=== PATIENT | male | born 1970 | race Caucasian/White ===

== ENCOUNTER 2016-10-20 14:48 | Observation (INO) ==
--- NOTE | 2016-10-20 16:29 | Emergency Department Note ---
START Narrative - START START: I, Gary Rosas, examined this patient and my medical decision-making was reviewed with the SEWAGE DISPOSAL WORKER/PA/Advanced Practice Nurse/Resident Physician. I agree with the documented findings, disposition and treatment plan as described except to the extent set forth below. 46-year-old male presents with concerns of near syncope. Sister states the patient developed acute onset of diaphoresis, near syncopal symptoms with lightheadedness and pallor. sister states that this occurred 15 minutes after using the restroom. Patient reports that this is his third time back to the emergency department within the past few weeks for similar symptoms. Patient has multiple risk factors for cardiac disease including hypertension, hyperlipidemia, diabetes and multiple family members with cardiac disease. Patient denied chest pain today. Initial troponin negative. ECG showed sinus tachycardia with a rate of 102. Patient will be admitted to the hospital for near syncopal symptoms and likely observation overnight.
[2016-10-20] MEDS ORDERED: 0.9 % Sodium Chloride 1,000 ML IVC ONE ×2 (16:34→20:52)
--- NOTE | 2016-10-20 16:37 | Emergency Department Note ---
Disposition Clinical Impression: Pre-syncope, Tachycardia Fatigue Qualifiers: Fatigue type: other Qualified Code(s): R53.83 - Other fatigue Disposition: Admitted As Inpatient Condition: Fair Time of Disposition: 21:27 General Adult HPI - General Chief complaint: ED Neuro Symptoms/Deficit Stated complaint: Needs CT Time Seen by Provider: 10/20/16 15:47 Source: patient Limitations: no limitations Nursing Notes Reviewed: Yes Vital Signs Reviewed: Yes - History of Present Illness HPI Narrative: 46-year-old male presents after presyncopal episode. Patient has a past history for diabetes hypertension and hyperlipidemia. Patient's sister in the room has full history states that patient had a bowel movement earlier today when he had a presyncopal episode and was pale and diaphoretic that persist for greater than 15 minutes afterwards which was concerning to her. Patient did not have any loss of consciousness, but patient has been feeling lightheaded. She reports the patient's been having persistent tachycardia for the past week. Patient was seen in the ED on the first for hyperglycemia is treated with IV therapy and sent home. Denies fever, cough, chills, any nausea or vomiting today. Patient did have some nausea and vomiting 2 days ago. Denies trauma, denies alcohol use, tobacco use, illicit drug use. Patient is not on anticoagulants Patient admits to feeling excessively thirsty Pain Scale: 5 - Related Data Home Medications Medication Instructions Recorded Confirmed Buspirone [Buspar] 15 mg PO BID 06/19/15 10/20/16 Gemfibrozil [Lopid] 600 mg PO BIDWM 06/19/15 10/20/16 Lisinopril [Zestril] 10 mg PO DAILY 06/19/15 10/20/16 Sertraline [Zoloft] 50 mg PO QPM 06/19/15 10/20/16 Glimepiride [Amaryl] 4 mg PO QAM 10/20/16 10/20/16 Hydroxyzine HCl 25 mg PO DAILY PRN 10/20/16 10/20/16 Metformin HCl [Glucophage Xr] 750 mg PO BID 10/20/16 10/20/16 Pioglitazone HCl [Actos] 30 mg PO DAILY 10/20/16 10/20/16 Sertraline [Zoloft] 100 mg PO QAM 10/20/16 10/20/16 Allergies Allergy/AdvReac Type Severity Reaction Status Date / Time No Known Allergies Allergy Verified 10/20/16 15:33 All systems ED: reviewed and negative except as stated. Constitutional: Denies: fever, chills, weakness Eyes: Denies: eye pain, vision change ENT ED: Denies: ear pain, congestion, dysphagia Cardiovascular: Denies: chest pain, palpitations Respiratory: Denies: cough, dyspnea, wheezes Gastrointestinal: Denies: abdominal pain, nausea, vomiting, diarrhea Genitourinary: Denies: urgency, dysuria Past Medical History - Past Medical History Attestation: Yes The following information was validated with the patient. Source: patient, obtained from family Medical history: Reports: diabetes, hyperlipidemia, hypertension, other Surgical history: Reports: non-contributory, other Psychiatric history: Reports: anxiety - Social History Smoking Status: Never smoker Smokeless Tobacco Status: No Alcohol use: Reports: none Drug use: Reports: none Physical Exam Vital Signs Temperature 97.7 F 10/20/16 15:26 Pulse Rate 116 10/20/16 15:26 Respiratory Rate 16 10/20/16 15:26 Blood Pressure 125/81 10/20/16 15:26 O2 Sat by Pulse Oximetry 96 10/20/16 15:26 Temperature 97.7 F 10/20/16 15:26 Pulse Rate 112 10/20/16 16:04 Respiratory Rate 18 10/20/16 16:04 Blood Pressure 125/79 10/20/16 16:04 O2 Sat by Pulse Oximetry 96 10/20/16 16:04 Oxygen Delivery Oxygen Delivery Room Air -General Appearance: Patient is a 46-year-old male who is alert and oriented 3 and in no acute distress. Patient has a GCS of 15. Patient sitting upright on the bed comfortably -Neurological exam: Cranial nerves II-12 intact, no focal deficits observed, strength equal 5/5 bilaterally in upper and lower extremities, cerebellar motion test negative. Negative loss of sensation, reflexes 2 out of 4 intact no clonus. Patient able to perform repetitive motion tests appropriately - Head Head exam: atraumatic, normocephalic, normal inspection - Eye Eye exam: Present: normal appearance, PERRL, EOMI, negative for scleral icterus negative for conjunctival pallor - ENT ENT exam: normal exam, normal oropharynx, mucous membranes moist - Neck Neck exam: Present: normal inspection, full ROM, trachea midline, negative JVD - Chest Chest inspection: Present: Patient has bilateral equal rise and fall of chest wall. Non-tender to palpation. - Respiratory Respiratory exam: Clear to auscultation bilaterally without wheezes rales or rhonchi Cardiovascular Cardiovascular exam: Present: regular rate, normal rhythm, normal heart sounds, without murmurs rubs or gallops. - Abdominal Exam Abdominal exam: Present: soft, nondistended, Non-Tender light and deep palpation in all quadrants. Bowel sounds normoactive throughout all 4 quadrants. Negative for hyper or hyperresonance. - Extremities Exam Extremities exam: Present: normal inspection, full ROM, cecal regular bilaterally at radials and DPs - Back Exam Back exam: Present: normal inspection, full ROM. Absent: tenderness, CVA tenderness (R), CVA tenderness (L) - Psychiatric Psychiatric exam: Present: normal affect, normal mood - Skin Skin exam: Present: warm, dry, intact, normal color, capillary refill less than 2 - General Limitations: no limitations General appearance: alert, in no apparent distress Course - Reevaluation(s) Reevaluation #1: Assessment: Presyncopal episode secondary to vasovagal response, TIA, stroke, DKA, dehydration, ACS and [place], Time: 16:40 Reevaluation #2: Patient's chest x-ray showed no acute abnormalities lungs or heart. Reevaluation #3: Patient is doing well still tachycardic, and feeling like pressure on top of his head and is wearing a hat. Still trying to obtain IV access to start IV rehydration. Labs were drawn Time: 17:31 Additional Reevaluation(s): Chest X-Ray 10/20/16 16:35 IMPRESSION: No acute process. D/ / Alejandro Chao MD / Alejandro Chao MD Interpreting Provider: Alejandro Chao MD Head CT 10/20/16 17:34 IMPRESSION: No acute intracranial abnormality. D/ / Elton Doran MD / Elton Doran MD Interpreting Provider: Elton Doran MD 1915 hrs.: The patient's last tachycardia. Plan to do a d-dimer CTA chest showed no signs of PE. Current plan is admission for near syncope and no etiology with persistent tachycardia for further evaluation and neurology and cardiology. - Consultations Consultation #1: Dr. Berry accepted for admission 2121 hrs Time: 21:24 Vital Signs Temperature 97.7 F 10/20/16 15:26 Pulse Rate 116 10/20/16 15:26 Respiratory Rate 16 10/20/16 15:26 Blood Pressure 125/81 10/20/16 15:26 O2 Sat by Pulse Oximetry 96 10/20/16 15:26 Temperature 97.7 F 10/20/16 15:26 Pulse Rate 113 10/20/16 21:40 Respiratory Rate 16 10/20/16 22:12 Blood Pressure 133/99 10/20/16 22:12 O2 Sat by Pulse Oximetry 95 10/20/16 21:40 Oxygen Delivery Oxygen Delivery Room Air Medical Decision Making - Medical Records Medical records reviewed: Yes I reviewed the patient's medical records. - Lab Data Lab results reviewed: Yes I reviewed the patient's lab results. Lab results narrative: Short CBC 10/20/16 Range/Units 17:14 WBC 6.2 (4.3-11.1) K/mcL Hgb 15.0 (12.9-16.9) g/dL Hct 43.5 (37.5-50.1) % Plt Count 370 (140-400) K/mcL Neutrophils # 3.6 (1.6-8.9) K/mcL BMP 10/20/16 Range/Units 17:14 Sodium 133 L (136-145) mEq/L Potassium 4.4 (3.5-4.5) mEq/L Chloride 99 (98-109) mEq/L Carbon Dioxide 20 (19-29) mEq/L BUN 24 (8-26) mg/dL Creatinine 1.26 H (0.72-1.25) mg/dL Glucose 112 H (70-99) mg/dL Calcium 10.7 (8.6-10.8) mg/dL Cardiac Enzymes 10/20/16 Range/Units 17:14 Troponin I 0.00 (0-0.03) ng/mL Result diagrams: 10/20/16 17:14 10/20/16 17:14 Lab Results 10/20/16 10/20/16 10/20/16 Range/Units 17:02 17:14 17:14 WBC 6.2 (4.3-11.1) K/mcL RBC 4.82 (4.19-5.50) M/mcL Hgb 15.0 (12.9-16.9) g/dL Hct 43.5 (37.5-50.1) % MCV 90.2 (83.0-100.0) fL MCH 31.1 (28.0-33.3) pg MCHC 34.5 (31.6-35.5) g/dL RDW 12.7 (11.5-14.5) % Plt Count 370 (140-400) K/mcL MPV 10.6 (9.4-12.4) fL Immature Gran % 0.2 (0-4) % Seg Neutrophils % 58.4 % Lymphocytes % 31.9 % Monocytes % 7.1 % Eosinophils % 1.9 % Basophils % 0.5 % Neutrophils # 3.6 (1.6-8.9) K/mcL Lymphocytes # 2.0 (0.6-4.6) K/mcL Monocytes # 0.4 (0.0-1.3) K/mcL Eosinophils # 0.1 (0.0-0.6) K/mcL Basophils # 0.0 (0.0-0.2) K/mcL D-Dimer (0-500) ng/mLFEU Sodium 133 L (136-145) mEq/L Potassium 4.4 (3.5-4.5) mEq/L Chloride 99 (98-109) mEq/L Carbon Dioxide 20 (19-29) mEq/L BUN 24 (8-26) mg/dL Creatinine 1.26 H (0.72-1.25) mg/dL Est GFR ( Amer) > 60 (> 60) Est GFR (Non-Af Amer) > 60 (> 60) BUN/Creatinine Ratio 19 (6-26) Glucose 112 H (70-99) mg/dL POC Glucose 131 H (58-89) Calculated Osmolality 281 (280-300) Calcium 10.7 (8.6-10.8) mg/dL Troponin I (0-0.03) ng/mL 10/20/16 10/20/16 Range/Units 17:14 17:14 WBC (4.3-11.1) K/mcL RBC (4.19-5.50) M/mcL Hgb (12.9-16.9) g/dL Hct (37.5-50.1) % MCV (83.0-100.0) fL MCH (28.0-33.3) pg MCHC (31.6-35.5) g/dL RDW (11.5-14.5) % Plt Count (140-400) K/mcL MPV (9.4-12.4) fL Immature Gran % (0-4) % Seg Neutrophils % % Lymphocytes % % Monocytes % % Eosinophils % % Basophils % % Neutrophils # (1.6-8.9) K/mcL Lymphocytes # (0.6-4.6) K/mcL Monocytes # (0.0-1.3) K/mcL Eosinophils # (0.0-0.6) K/mcL Basophils # (0.0-0.2) K/mcL D-Dimer 1680 H (0-500) ng/mLFEU Sodium (136-145) mEq/L Potassium (3.5-4.5) mEq/L Chloride (98-109) mEq/L Carbon Dioxide (19-29) mEq/L BUN (8-26) mg/dL Creatinine (0.72-1.25) mg/dL Est GFR ( Amer) (> 60) Est GFR (Non-Af Amer) (> 60) BUN/Creatinine Ratio (6-26) Glucose (70-99) mg/dL POC Glucose (58-89) Calculated Osmolality (280-300) Calcium (8.6-10.8) mg/dL Troponin I 0.00 (0-0.03) ng/mL - Radiology Data Radiology results reviewed: Yes I reviewed the patient's radiology results. Chest X-Ray 10/20/16 16:35 IMPRESSION: No acute process. D/ / Alejandro Chao MD / Alejandro Chao MD Interpreting Provider: Alejandro Chao MD Head CT 10/20/16 17:34 IMPRESSION: No acute intracranial abnormality. D/ / Elton Doran MD / Elton Doran MD Interpreting Provider: Elton Doran MD - EKG Data EKG #1 EKG attestation: Yes I reviewed and interpreted this EKG. EKG results narrative: EKG taken 10/20/2016 at 1700 hrs. shows a sinus tachycardia at a rate of 102 beats minute with no acute ST elevations or depressions any leads. EKG does show a S1 Q3 T3. Previous EKG taken 10/17/2016 also shows sinus tachycardia no acute ST elevations or depressions any leads. S1 Q3 T3 also seen
[2016-10-20 17:30] LABS: Basophils % 0.5 %; Eosinophils # 0.1 K/mcL (0.0-0.6); Eosinophils % 1.9 %; Hematocrit 43.5 % (37.5-50.1); Immature Granulocytes % 0.2 % (0-4); Lymphocytes % 31.9 %; Mean Corpuscular HGB Conc 34.5 g/dL (31.6-35.5); Mean Corpuscular Hemoglobin 31.1 pg (28.0-33.3); Mean Corpuscular Volume 90.2 fL (83.0-100.0); Mean Platelet Volume 10.6 fL (9.4-12.4); Monocytes # 0.4 K/mcL (0.0-1.3); Monocytes % 7.1 %; Neutrophils # 3.6 K/mcL (1.6-8.9); Platelet Count 370 K/mcL (140-400); Red Blood Count 4.82 M/mcL (4.19-5.50); Red Cell Distribution Width 12.7 % (11.5-14.5); Segmented Neutrophils % 58.4 %
[2016-10-20 17:38] LABS: BUN/Creatinine Ratio 19 (6-26); Blood Urea Nitrogen 24 mg/dL (8-26); Calcium 10.7 mg/dL (8.6-10.8); Carbon Dioxide 20 mEq/L (19-29); Chloride 99 mEq/L (98-109); Glucose 112 mg/dL (70-99); Osmolality,Calculated 281 (280-300); Potassium 4.4 mEq/L (3.5-4.5); Sodium 133 mEq/L (136-145); eGFR For African Americans > 60 (> 60); eGFR For Non-African Americans > 60 (> 60)
--- NOTE | 2016-10-21 00:16 | Internal Med History&Physical ---
Date of Encounter: 10/21/16 Time of Encounter: 01:00 Assessment and Plan (1) Postural dizziness with presyncope Status: Resolved . (2) Obesity (BMI 30-39.9) Status: Chronic . (3) Situational anxiety Status: Resolved . (4) POTS (postural orthostatic tachycardia syndrome) Status: Acute . (5) Hyperglycemia due to type 2 diabetes mellitus Status: Acute . Qualifiers: Diabetes mellitus intermediate teacher insulin use: unspecified intermediate teacher insulin use status Qualified Code(s): E11.65 - Type 2 diabetes mellitus with hyperglycemia (6) Tension type headache, unspecified Status: Acute . Qualifiers: Headache chronicity pattern: unspecified pattern Intractability: not intractable Qualified Code(s): G44.209 - Tension-type headache, unspecified, not intractable (7) Dilutional hyponatremia Status: Acute . (8) CKD (chronic kidney disease) stage 2, GFR 60-89 ml/min Status: Chronic . Internal Medicine - H&P: HPI Chief complaint: (Recurring near syncope)... lightheadedness sweats pallor and weakness Admitted From: Emergency Dept Plans for Post Hospital Care: Home History of present illness: Mr. Mayorga is a 46 year old male with medical history significant for type II DM , hypertension, dyslipidemia, depression/situational anxiety disorder, morbid obesity, nonsmoker. Patient is admitted to [facility] department when he presents accompanying family with concerns of recurring episodes of near syncope. Patient's sister validates history reports patient develops episodically acute onset of diaphoresis lightheadedness pallor and near -syncope. Sister acknowledges that recent episode occurred after using the bathroom and lingered for more than 15 minutes afterwards. The patient reports that this was the third time that he is presented in the past few weeks for similar recurring symptoms. He denies any episodes of complete loss of consciousness. He has felt lightheaded and unsteady He denied episodes of chest pain, abdominal pain and flank pain and neck pain these episodes. He presents today with a headache symptom which he describes as feeling like a hat band about the top of his head. He denies any outstanding electric lancinating pains visual deficits slurring of speech, weakness witnessed seizure-like activity. Sr. also acknowledge that the patient had had persisting tachycardias with the last week or so. According the patient denies any dietary recreational or medication indiscretions. Specifically he denies any significant reductions discontinuance introduction of medications to address his anxiety and depression (example buspirone hydroxyzine Adrienne et al). He denied any doses and stimulants herbal therapies for weight loss remedies. He has acknowledged a diminished appetite with feelings of early satiety. As a consequence his oral intake of solids and liquids have somewhat recently. Denies any significant problems with his diabetes management however has been seen in the emergency department within the month for symptomatic hypoglycemia. Received intravenous therapy and was discharged home. He denies any recent upper or lower respiratory complaints cough fever or chills or vomiting diarrhea. He denies any trauma. Does acknowledge an increase since of thirstiness but denies polyuria or polyphagia. Findings in the ED: 97.7 pulse 112-160 respirations 16-18 BP 125/81 O2 saturation 96% on room air. WBC 6.2 hemoglobin 15 platelets 370,000. Metabolic panel normal except sodium 133. Creatinine 1.6 BUN 24. Glucose 112. White blood cell differential normal. Osmolality 281. D-dimer 1680. Troponin 0.00. EKG sinus tachycardia. 102 bpm. No acute ischemic changes. CT head scan without contrast demonstrated no acute intracranial abnormality. CT angiogram of the chest demonstrated no evidence for pulmonary embolus or aortic aneurysm or dissection. No acute active cardiopulmonary process. Mediastinal lipomatosis noted incidentally. Chest x-ray revealed no acute or active cardiopulmonary process. Preliminary impression suggests episodes of neurocardiogenic/vasovagal presyncopal or near syncopal events. The report of post defecation/post micturition symptoms compatible with a vasovagal event. Presentation is significant for a perception of anxiety and tension state in patient. Subjective feelings of hat bandlike sensation about the vertex of scalp is reminiscent of tension muscle contraction syndromes. He denies however on truly perceived headache. His ability however to describe symptoms feelings and events is vague. The presence of the tachycardia may suggest an autonomic dysfunction with postural orthostatic tachycardia syndrome as might be seen in a poorly controlled diabetic. This will bear further investigation. He does have orthostatic changes with change in position. That side however not significant enough to induce presyncopal complaints. Studies obtained otherwise are not specifically diagnostic. Further assessment is warranted. Workup and treatment will proceed comprehensively. The patient was visited and interviewed and examined. Cumulative laboratory and radiographic data base will be considered and discussed. Pertinent ancillary medical records including ECW and PCI documentation when available was reviewed and considered. Given the patient's presenting concerns, past medical history, clinical findings and symptoms, he is admitted at this time will undergo further evaluation and disposition. Orders were written as per Computerized physician order tracer system.......................................................................... .................... Consultative opinion will be sought as clinical circumstances justify. Pain management needs will be addressed. Laboratory/ radiographic data base will be updated as appropriate. Studies include: ddimer, pt/inr, aptt, UA, UDS, B12, folate, prolactin, cpk, cardiac injury panel, BNP, metabolic and hematologic panel, magnesium, phosphorus, ionized calcium, thyroid panel, lipid profile, A1c, C-peptide, CRP, sedimentation rate, respiratory virus panel, blood gas, lactic acid, serologies , etc. Precautions: Aspiration, fall, seizure, delirium protocol/surveillance initiated. Orthostatic vital signs. Telemetry with continuous hemodynamic monitoring and pulse oximetry initiated. Empiric antibody coverage: Intravenous Rocephin and azithromycin pending culture data. Special studies: CT/CTA chest, CT head, MRI head, carotid US, chest x-ray, telemetry, EKG, echocardiogram. Pulmonary toilet: Incentive spirometry. PRN: aerosol bronchodilator, mucolytic, antitussive, supplemental oxygen. Corticosteroid therapy PRN. CPAP/BiPAP supplemental oxygen deliveryPRN. Aerosol Mucomyst therapy PRN. Fluid and electrolyte repletion efforts will proceed. Careful attention to fluid balance and renal recovery will be emphasized. Avoidance of nephrotoxic exposure and adverse drug drug interaction in the setting of impaired renal function will be monitored closely. Acute coronary syndrome protocol/surveillance initiated. Acute MONTESS[employer]GRAM DIRECTOR injury protocol/surveillance initiated. DVT and PUD prophylaxis initiated: PPI therapy, intermittent pneumatic cuffs. Subcutaneous heparinLovenox. Early ambulation will be encouraged. Immunization updates recommended. Influenza and pneumococcal vaccinations as part of ongoing preventative healthcare recommendations strongly recommended. Smoking cessation counseling briefly addressed. Patient is a nonsmoker. Advanced care directive discussion briefly addressed. Patient does not declare any healthcare restrictions at this time. Cardiovascular risk appraisal and cardiovascular risk reduction efforts will be emphasized. Physical /occupational therapy may be consulted to evaluate patient's functional capacity and progressive mobility if circumstances justify. Sliding scale insulin coverage, ADA dietary restraint and schedule an as-needed basis fingerstick glucose assessments were initiated. Nutrition/diabetes education counseling may be considered as circumstances justify. Outpatient medication schedules will be reviewed, confirmed and facilitated as appropriate. Reconciliation of home treatments including adjustments, substitutions and reintroduction into the treatment regimen will address necessary maintenance therapies for chronic pre-existing medical conditions. Plan of care has been reviewed and discussed in detail with the patient. Questions addressed. Hospital course dictated by clinical findings, treatment response and potential consultative interventions. Patient is a risk for further acute clinical decline due to presenting chief complaints and comorbidities. Condition is serious. Prognosis is guarded. CODE STATUS is full. Past Med Surg Social Fam HX - Past Medical History Source: old records reviewed Medical history: diabetes, hyperlipidemia, hypertension, other Psychiatric history: anxiety, depression, other - Past Surgical History Surgical History: non-contributory, other - Social History Smoking Status: Never smoker Smokeless Tobacco Status: No Alcohol use: none Drug use: none Occupational status: employed Current living situation: Home - Independent Activity Level: Independent ambulation, Mostly sedentary Recent Out of Country Travel Within the Last 8 Weeks: No Exposure or Possible Exposure to Illness During Travel: No - Family History Father Living Status: Still Living Hx Family Endocrine Disorder: Yes (DM) Mother Living Status: Hx Family Neuromuscular Disorders: Yes (ALS) Internal Medicine - H&P: Meds Buspirone [Buspar] 15 mg PO BID 06/19/15 [History] Gemfibrozil [Lopid] 600 mg PO BIDWM 06/19/15 [History] Lisinopril [Zestril] 10 mg PO DAILY 06/19/15 [History] Sertraline [Zoloft] 50 mg PO QPM 06/19/15 [History] Glimepiride [Amaryl] 4 mg PO QAM 10/20/16 [History] Hydroxyzine HCl 25 mg PO DAILY PRN 10/20/16 [History] Metformin HCl [Glucophage Xr] 750 mg PO BID 10/20/16 [History] Pioglitazone HCl [Actos] 30 mg PO DAILY 10/20/16 [History] Sertraline [Zoloft] 100 mg PO QAM 10/20/16 [History] Allergies No Known Allergies Allergy (Verified 10/20/16 15:33) All Systems PM: A 10-system review of systems was performed and is negative for pertinent findings except as documented above in the HPI. Allergies Allergy/AdvReac Type Severity Reaction Status Date / Time No Known Allergies Allergy Verified 10/20/16 15:33 Patient Problems (Last Updated 10/20/16 @ 21:28 by Torsten Asencio DO) Fatigue (Acute Medical) R53.83 Pre-syncope (Acute Medical) R55 Tachycardia (Acute Medical) R00.0 Anxiety (Acute Medical) F41.9 Hyperglycemia (Acute Medical) R73.9 Hyperglycemia due to type 2 diabetes mellitus (Acute Medical) E11.65 Nausea and vomiting (Acute Medical) R11.2 Anxiety (Inactive Medical) Diabetic ulcer of left foot (Inactive Medical) Headache (Inactive Medical) - Constitutional Constitutional: as per HPI, fatigue, malaise, other, no chills, no fever(s), no night sweats - EENT Eyes: as per HPI, no change in vision, no discharge, no pain, no photophobia Ears: as per HPI, no ear discharge, no ear pain, no tinnitus Nose, mouth and throat: as per HPI, no dysphagia, no nasal discharge, no neck pain, no sore throat - Cardiovascular Cardiovascular ROS IM: as per HPI, diaphoresis, lightheadedness, palpitations, other, no chest pain, no claudication, no dyspnea, no edema, no orthopnea, no paroxysmal nocturnal dyspnea, no syncope - Respiratory Respiratory: as per HPI, other, no cough, no dyspnea, no hemoptysis, no wheezing , no excessive phlegm production - Gastrointestinal Gastrointestinal: as per HPI, no abdominal pain, no diarrhea, no hematemesis, no hematochezia, no melena, no nausea, no vomiting - Genitourinary Genitourinary ROS male: as per HPI - Musculoskeletal Musculoskeletal ROS IM: as per HPI, no numbness, no tingling - Integumentary Integumentary IM: as per HPI, no rash, no unusual bruising - Neurological Neurological ROS: as per HPI, dizziness, weakness, other, no abnormal speech, no confusion, no convulsions, no focal weakness, no headache(s), no lack of coordination, no loss of vision, no numbness, no tingling, no tremor(s) - Psychiatric Psychiatric: as per HPI, other - Endocrine Endocrine IM: as per HPI, other - Hematologic/Lymphatic Hematologic/Lymphatic: as per HPI, no easy bruising - Allergic/Immunologic Allergic/Immunologic: as per HPI - Constitutional Vitals: Temp Pulse Resp BP Pulse Ox 98.1 F 102 16 106/71 95 10/20/16 22:58 10/20/16 22:58 10/20/16 22:58 10/20/16 22:58 10/20/16 22:58 Vital Signs Temp Pulse Pulse Pulse Pulse Resp BP 10/20/16 22:58 98.1 F 102 16 106/71 10/20/16 22:12 16 133/99 10/20/16 21:40 113 16 141/94 10/20/16 18:16 99 16 120/80 10/20/16 17:12 114 16 130/85 10/20/16 17:11 99 104 114 10/20/16 17:01 106 16 10/20/16 16:04 112 18 125/79 10/20/16 15:26 97.7 F 116 16 125/81 BP BP BP Pulse Ox 10/20/16 22:58 95 10/20/16 22:12 10/20/16 21:40 95 10/20/16 18:16 94 10/20/16 17:12 95 10/20/16 17:11 122/85 129/91 130/85 10/20/16 17:01 95 10/20/16 16:04 96 10/20/16 15:26 96 Intake and Output 10/20/16 10/20/16 10/21/16 15:59 23:59 07:59 Intake Total 1000 / 1000 Balance 1000 / 1000 Intake: IV Fluids 1000 / 1000 0.9 % Sodium Chloride 1, 1000 / 1000 000 ML @ 3750 mls/hr IVC .Q16M ONE Rx#:[id number] Other: # Voids 1 Weight 99.79 kg 103.419 kg Blood Glucose* 107 General appearance: Present: mild distress, A&O X 3, morbidly obese, answers questions appropriately - Head Head exam: Present: atraumatic, normal inspection, normocephalic - Eye Eye exam: Present: EOMI, PERRL, conjuntiva pink, sclera anicteric Pupils: Present: normal accommodation, PERRL - ENT ENT exam: Present: mucous membranes moist, normal external ear exam, normal oropharynx - Neck Neck exam general surgery: Present: full ROM, tenderness, supple, trachea midline. Absent: lymphadenopathy, nuchal rigidity - Respiratory Respiratory exam: Present: decreased breath sounds, CTAB. Absent: accessory muscle use, rales, rhonchi, wheezes - Cardiovascular Cardiovascular exam: Present: distant heart sounds, RRR, +S1, +S2, tachycardia. Absent: diastolic murmur, gallop, rubs, systolic murmur - GI/Abdominal GI/Abdominal exam: Present: normal bowel sounds, soft, no peritoneal signs. Absent: distended, tenderness - Extremities Exam Extremities exam: Present: full ROM, warm, radial pulses palpable and symetrical. Absent: calf tenderness, cyanotic, pedal edema - Neurological Exam Neurological exam: Present: alert, CN II-XII intact, oriented X3, no focal deficits, strengths equal and symetr throughout. Absent: motor sensory deficit , pronater drift, facial droop, speech deficit - Psychiatric Psychiatric exam: Present: anxious, normal mood - Skin Skin exam: Present: dry, intact, warm. Absent: petechiae, rash, urticaria, vesicles Internal Med - H&P Results - Labs CBC & Chem 7: 10/20/16 17:14 10/21/16 01:22 Labs: Short CBC 10/20/16 Range/Units 17:14 WBC 6.2 (4.3-11.1) K/mcL Hgb 15.0 (12.9-16.9) g/dL Hct 43.5 (37.5-50.1) % Plt Count 370 (140-400) K/mcL Neutrophils # 3.6 (1.6-8.9) K/mcL BMP 10/20/16 Range/Units 17:14 Sodium 133 L (136-145) mEq/L Potassium 4.4 (3.5-4.5) mEq/L Chloride 99 (98-109) mEq/L Carbon Dioxide 20 (19-29) mEq/L BUN 24 (8-26) mg/dL Creatinine 1.26 H (0.72-1.25) mg/dL Glucose 112 H (70-99) mg/dL Calcium 10.7 (8.6-10.8) mg/dL Cardiac Enzymes 10/20/16 Range/Units 17:14 Troponin I 0.00 (0-0.03) ng/mL Abnormal lab results D-Dimer 1680 ng/mLFEU (0-500) H 10/20/16 17:14 Sodium 133 mEq/L (136-145) L 10/20/16 17:14 Creatinine 1.26 mg/dL (0.72-1.25) H 10/20/16 17:14 Glucose 112 mg/dL (70-99) H 10/20/16 17:14 POC Glucose 107 (58-89) H 10/20/16 21:39 Laboratory Last Values WBC 6.2 K/mcL (4.3-11.1) 10/20/16 17:14 RBC 4.82 M/mcL (4.19-5.50) 10/20/16 17:14 Hgb 15.0 g/dL (12.9-16.9) 10/20/16 17:14 Hct 43.5 % (37.5-50.1) 10/20/16 17:14 MCV 90.2 fL (83.0-100.0) 10/20/16 17:14 MCH 31.1 pg (28.0-33.3) 10/20/16 17:14 MCHC 34.5 g/dL (31.6-35.5) 10/20/16 17:14 RDW 12.7 % (11.5-14.5) 10/20/16 17:14 Plt Count 370 K/mcL (140-400) 10/20/16 17:14 MPV 10.6 fL (9.4-12.4) 10/20/16 17:14 Immature Gran % 0.2 % (0-4) 10/20/16 17:14 Seg Neutrophils % 58.4 % 10/20/16 17:14 Lymphocytes % 31.9 % 10/20/16 17:14 Monocytes % 7.1 % 10/20/16 17:14 Eosinophils % 1.9 % 10/20/16 17:14 Basophils % 0.5 % 10/20/16 17:14 Neutrophils # 3.6 K/mcL (1.6-8.9) 10/20/16 17:14 Lymphocytes # 2.0 K/mcL (0.6-4.6) 10/20/16 17:14 Monocytes # 0.4 K/mcL (0.0-1.3) 10/20/16 17:14 Eosinophils # 0.1 K/mcL (0.0-0.6) 10/20/16 17:14 Basophils # 0.0 K/mcL (0.0-0.2) 10/20/16 17:14 D-Dimer 1680 ng/mLFEU (0-500) H 10/20/16 17:14 Sodium 133 mEq/L (136-145) L 10/20/16 17:14 Potassium 4.4 mEq/L (3.5-4.5) 10/20/16 17:14 Chloride 99 mEq/L (98-109) 10/20/16 17:14 Carbon Dioxide 20 mEq/L (19-29) 10/20/16 17:14 BUN 24 mg/dL (8-26) 10/20/16 17:14 Creatinine 1.26 mg/dL (0.72-1.25) H 10/20/16 17:14 Est GFR ( Amer) > 60 (> 60) 10/20/16 17:14 Est GFR (Non-Af Amer) > 60 (> 60) 10/20/16 17:14 BUN/Creatinine Ratio 19 (6-26) 10/20/16 17:14 Glucose 112 mg/dL (70-99) H 10/20/16 17:14 POC Glucose 107 (58-89) H 10/20/16 21:39 Calculated Osmolality 281 (280-300) 10/20/16 17:14 Calcium 10.7 mg/dL (8.6-10.8) 10/20/16 17:14 Troponin I 0.00 ng/mL (0-0.03) 10/20/16 17:14 - Impressions Chest X-Ray 10/20/16 16:35 IMPRESSION: No acute process. D/ / Alejandro Chao MD / Alejandro Chao MD Interpreting Provider: Alejandro Chao MD Head CT 10/20/16 17:34 IMPRESSION: No acute intracranial abnormality. D/ / Elton Doran MD / Elton Doran MD Interpreting Provider: Elton Doran MD Chest CTA 10/20/16 19:51 IMPRESSION: No evidence of a pulmonary embolus. Clear lungs. Mediastinal lipomatosis. D/ / Alf Ling MD / Alf Ling MD Interpreting Provider: Alf Ling MD - Attending Attestation Allergies No Known Allergies Allergy (Verified 10/20/16 15:33) Home Medications Medication Instructions Recorded Confirmed Type Buspirone [Buspar] 15 mg PO BID 06/19/15 10/20/16 History Gemfibrozil [Lopid] 600 mg PO BIDWM 06/19/15 10/20/16 History Lisinopril [Zestril] 10 mg PO DAILY 06/19/15 10/20/16 History Sertraline [Zoloft] 50 mg PO QPM 06/19/15 10/20/16 History Glimepiride [Amaryl] 4 mg PO QAM 10/20/16 10/20/16 History Hydroxyzine HCl 25 mg PO DAILY PRN 10/20/16 10/20/16 History Metformin HCl [Glucophage Xr] 750 mg PO BID 10/20/16 10/20/16 History Pioglitazone HCl [Actos] 30 mg PO DAILY 10/20/16 10/20/16 History Sertraline [Zoloft] 100 mg PO QAM 10/20/16 10/20/16 History I & O 10/18/16 10/19/16 10/20/16 10/21/16 23:59 23:59 23:59 23:59 Intake Total 1000 / 1000 Balance 1000 / 1000 Weight 103.419 kg Intake: IV Fluids 1000 / 1000 0.9 % Sodium Chloride 1, 1000 / 1000 000 ML @ 3750 mls/hr IVC .Q16M ONE Rx#:[id number] Other: # Voids 1 Blood Glucose* 107 Medications Discontinued Medications Sodium Chloride (0.9 % Sodium Chloride) 1,000 mls @ 3,750 mls/hr IVC .Q16M ONE Stop: 10/20/16 16:49 Last Infusion: 10/20/16 20:10 Dose: 0 mls/hr Sodium Chloride (0.9 % Sodium Chloride) 1,000 mls @ 3,750 mls/hr IVC .Q16M ONE Stop: 10/20/16 21:07 Last Admin: 10/20/16 21:35 Dose: 3,750 mls/hr Nursing Notes 10/20/16 20:55 Transport Report by Joel Duvall Date: 10/20/16 Transport Method: Portable No Known Allergies Allergy (Verified 10/20/16 15:33) Resuscitation Status 10/20/16 16:34 ECG 12 lead ECG [ECG] Stat Mode Of Transportation: Portable Reason For Exam: syncope Exam Performed At:: [facility] Oxygen: Mental Status: Fall Risk: Isolation: Nurse Required for Transport: No ___ Yes Limb Restrictions: No ___ Yes Behavioral issue/Risk for Elopement: No ___ Yes Telemetry Room Notification: Destination: MRI XRAY STRESS ULTRASOUND CT DIALYSIS ENDO OTHER: Depart Time: Nurse: Transporter: Arrive Time: Received by: ___ Return Time: Nurse: Transporter: ] Initialized on 10/20/16 20:55 - END OF NOTE 10/20/16 19:58 Transport Report by Joel Duvall Date: 10/20/16 Transport Method: Portable No Known Allergies Allergy (Verified 10/20/16 15:33) Resuscitation Status 10/20/16 16:34 ECG 12 lead ECG [ECG] Stat Mode Of Transportation: Portable Reason For Exam: syncope Exam Performed At:: [facility] 10/20/16 19:51 CTA chest [CT angio chest] [CT] Stat Comment: Mode Of Transportation: Portable Reason For Exam: dyspnea r/o PE Order Doctor: Gary Rosas Exam Performed At:: [facility] Allergic to Contrast: No Oxygen: Mental Status: Fall Risk: Isolation: Nurse Required for Transport: No ___ Yes Limb Restrictions: No ___ Yes Behavioral issue/Risk for Elopement: No ___ Yes Telemetry Room Notification: Destination: MRI XRAY STRESS ULTRASOUND CT DIALYSIS ENDO OTHER: Depart Time: Nurse: Transporter: Arrive Time: Received by: ___ Return Time: Nurse: Transporter: ] Initialized on 10/20/16 19:58 - END OF NOTE 10/20/16 17:38 Transport Report by Jax Vasquez Date: 10/20/16 Transport Method: Portable No Known Allergies Allergy (Verified 10/20/16 15:33) Resuscitation Status 10/20/16 16:34 ECG 12 lead ECG [ECG] Stat Mode Of Transportation: Portable Reason For Exam: syncope Exam Performed At:: [facility] 10/20/16 17:34 CT head/brain wo con [CT] Stat Mode Of Transportation: Portable Reason For Exam: near syncope with worry of feeling of pressure Order Doctor: Torsten Asencio Exam Performed At:: [facility] Allergic to Contrast: No Oxygen: Mental Status: Fall Risk: Isolation: Nurse Required for Transport: No ___ Yes Limb Restrictions: No ___ Yes Behavioral issue/Risk for Elopement: No ___ Yes Telemetry Room Notification: Destination: MRI XRAY STRESS ULTRASOUND CT DIALYSIS ENDO OTHER: Depart Time: Nurse: Transporter: Arrive Time: Received by: ___ Return Time: Nurse: Transporter: ] Initialized on 10/20/16 17:38 - END OF NOTE Orders 10/20/16 16:34 12 lead ECG assessment [RC] NOW Glucose, blood poc measurement [RC] .ONCE Orthostatic Vital Signs [RC] .ONCE Saline lock [RC] .ONCE Vital Signs Assessment [RC] PROTOCOL 0.9 % Sodium Chloride 1,000 ml IVC 3,750 mls/hr ECG 12 lead ECG [ECG] Stat Mode Of Transportation: Portable Reason For Exam: syncope Exam Performed At:: [facility] 10/20/16 16:35 XR chest 2V [XR] Stat Mode Of Transportation: Portable Reason For Exam: syncope Exam Performed At:: [facility] Additional Notes/Special Instructions: [facility] 10/20/16 17:02 POC Glucometer Test [POC] Routine 10/20/16 17:14 Basic Metabolic Panel Stat Comment: Specimen: Send someone from the department to collect Complete Blood Count [HEME] Stat Comment: Specimen: Send someone from the department to collect D-Dimer [COAG] Stat Comment: Specimen: Send someone from the department to collect Troponin I Stat Comment: Specimen: Send someone from the department to collect 10/20/16 17:34 CT head/brain wo con [CT] Stat Mode Of Transportation: Portable Reason For Exam: near syncope with worry of feeling of pressure Order Doctor: Torsten Asencio Exam Performed At:: [facility] Allergic to Contrast: No 10/20/16 19:51 CTA chest [CT angio chest] [CT] Stat Comment: Mode Of Transportation: Portable Reason For Exam: dyspnea r/o PE Order Doctor: Gary Rosas Exam Performed At:: [facility] Allergic to Contrast: No 10/20/16 20:[address] Stat Comment: Reason for Visit: near syncope 10/20/16 20:52 0.9 % Sodium Chloride 1,000 ml IVC 3,750 mls/hr 10/20/16 21:39 POC Glucometer Test [POC] Routine Patient Problems (Last Updated 10/20/16 @ 21:28 by Torsten Asencio DO) Fatigue (Acute) Pre-syncope (Acute) Tachycardia (Acute) Vital Signs Temp Pulse Pulse Pulse Pulse Resp BP 10/20/16 22:58 98.1 F 102 16 106/71 10/20/16 22:12 16 133/99 10/20/16 21:40 113 16 141/94 10/20/16 18:16 99 16 120/80 10/20/16 17:12 114 16 130/85 10/20/16 17:11 99 104 114 10/20/16 17:01 106 16 10/20/16 16:04 112 18 125/79 10/20/16 15:26 97.7 F 116 16 125/81 BP BP BP Pulse Ox 10/20/16 22:58 95 10/20/16 22:12 10/20/16 21:40 95 10/20/16 18:16 94 10/20/16 17:12 95 10/20/16 17:11 122/85 129/91 130/85 10/20/16 17:01 95 10/20/16 16:04 96 10/20/16 15:26 96 Laboratory Results 10/20/16 10/20/16 10/20/16 Range/Units 17:02 17:14 17:14 WBC 6.2 (4.3-11.1) K/mcL RBC 4.82 (4.19-5.50) M/mcL Hgb 15.0 (12.9-16.9) g/dL Hct 43.5 (37.5-50.1) % MCV 90.2 (83.0-100.0) fL MCH 31.1 (28.0-33.3) pg MCHC 34.5 (31.6-35.5) g/dL RDW 12.7 (11.5-14.5) % Plt Count 370 (140-400) K/mcL MPV 10.6 (9.4-12.4) fL Immature Gran % 0.2 (0-4) % Seg Neutrophils % 58.4 % Lymphocytes % 31.9 % Monocytes % 7.1 % Eosinophils % 1.9 % Basophils % 0.5 % Neutrophils # 3.6 (1.6-8.9) K/mcL Lymphocytes # 2.0 (0.6-4.6) K/mcL Monocytes # 0.4 (0.0-1.3) K/mcL Eosinophils # 0.1 (0.0-0.6) K/mcL Basophils # 0.0 (0.0-0.2) K/mcL D-Dimer (0-500) ng/mLFEU Sodium 133 L (136-145) mEq/L Potassium 4.4 (3.5-4.5) mEq/L Chloride 99 (98-109) mEq/L Carbon Dioxide 20 (19-29) mEq/L BUN 24 (8-26) mg/dL Creatinine 1.26 H (0.72-1.25) mg/dL Est GFR ( Amer) > 60 (> 60) Est GFR (Non-Af Amer) > 60 (> 60) BUN/Creatinine Ratio 19 (6-26) Glucose 112 H (70-99) mg/dL POC Glucose 131 H (58-89) Calculated Osmolality 281 (280-300) Calcium 10.7 (8.6-10.8) mg/dL Troponin I (0-0.03) ng/mL 10/20/16 10/20/16 10/20/16 Range/Units 17:14 17:14 21:39 WBC (4.3-11.1) K/mcL RBC (4.19-5.50) M/mcL Hgb (12.9-16.9) g/dL Hct (37.5-50.1) % MCV (83.0-100.0) fL MCH (28.0-33.3) pg MCHC (31.6-35.5) g/dL RDW (11.5-14.5) % Plt Count (140-400) K/mcL MPV (9.4-12.4) fL Immature Gran % (0-4) % Seg Neutrophils % % Lymphocytes % % Monocytes % % Eosinophils % % Basophils % % Neutrophils # (1.6-8.9) K/mcL Lymphocytes # (0.6-4.6) K/mcL Monocytes # (0.0-1.3) K/mcL Eosinophils # (0.0-0.6) K/mcL Basophils # (0.0-0.2) K/mcL D-Dimer 1680 H (0-500) ng/mLFEU Sodium (136-145) mEq/L Potassium (3.5-4.5) mEq/L Chloride (98-109) mEq/L Carbon Dioxide (19-29) mEq/L BUN (8-26) mg/dL Creatinine (0.72-1.25) mg/dL Est GFR ( Amer) (> 60) Est GFR (Non-Af Amer) (> 60) BUN/Creatinine Ratio (6-26) Glucose (70-99) mg/dL POC Glucose 107 H (58-89) Calculated Osmolality (280-300) Calcium (8.6-10.8) mg/dL Troponin I 0.00 (0-0.03) ng/mL Assessments/Treatments 12 lead ECG assessment Start: 10/20/16 16: 34 Freq: NOW Status: Complete Document 10/20/16 17:02 [facility] (Rec: 10/20/16 17:02 [id number][facility] EKG Time EKG Completed 17:00 EKG performed by SHIVANI Monae EKG shown to and signed by Dr. Rosas Cardiac monitoring Start: 10/20/16 16: 04 Freq: Status: Complete Document 10/20/16 16:04 [facility] (Rec: 10/20/16 16:05 [facility] [id number]) Cardiac Monitoring Heart Rate 110 Monitoring Method Bedside Rhythm Sinus Tachycardia ED Discharge Assessment Start: 10/20/16 15: 25 Freq: Status: Complete Document 10/20/16 22:12 [facility] (Rec: 10/20/16 22:13 [id number] ED Discharge Assessment ED Discharge Disposition Admitted ED Condition on Discharge Fair Med Rec/Patient Pharmacy Completed? Yes Admitted to 3B Bed assigned 3B54 Transported by range technician Transported with IV continuing medication Report given to Nurse Care transferred to (name/credentials) RONALD Strong Information relayed patient's care treatments medications given condition recent/anticipated changes Clinical Documentation Summary Provided Yes Pain Scale 0 Pain Scale Used Standard (1-10) Blood Pressure 133/99 Heart rate 92 Respiratory Rate 16 Oxygen Delivery Room Air Oxygen Saturation 96 Critical Care Minutes 0 ED Headache Assessment Start: 10/20/16 15: 57 Freq: Status: Complete Document 10/20/16 15:57 [facility] (Rec: 10/20/16 16:03 [id number] Headache Assessment Symptoms/Complaint "feeling foggy" Onset 1 week Context Unknown Improves With Nothing Worsens With Nothing Associated Symptoms None Level Of Consciousness Awake Alert Appropriate Follows Commands Patient Orientation Person Place Time Name Age Date of Day of Month Day of Week Month Year Time of Day Vision Changes Blurry Vision Visual Assist Glasses Nausea/Vomiting Presence None Respiratory Depth Normal Respiratory Effort Normal for Patient Spontaneous Non-Labored Oxygen Delivery Method Room Air Skin Temperature Warm Skin Moisture Dry Skin Turgor Elastic Capillary Refill < 3 Seconds ED Comment Pt sent from Dr. Sams office for head CT. Pt's sister states she did orthostatic BPs on him this morning & they were positive. Pt reports "funny feeling" to his head since about last . Pt reports intermittent "feeling foggy" & pressure. Pt's sister reports his heart rate has been high today ranging between 105-130s & intermittent diaphoresis. Pt also reports increased thirst & decreased appetite x 1 week. 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 IV infusions, chest tube, indwelling Mobility N/A (0 points) Cognition N/A (0 points) Total Fall Risk Score 0 Fall Risk Category Low Risk (0-5) Fall Risk Interventions Low Risk Interventions Bed in lowest position Top side rails up x 2 Secure brake on bed Use properly fitting non-skid footwear Call light and frequently needed objects within reach Encourage patients/families to call for assistance when needed Fall education including risk assessment, injury risk and routine/ Inspect environment for safety and communication risk Supervise and assist with toileting/ADLs as needed Moderate Risk Interventions Institue fall-risk tooklit ( yellow flag, yellow non-skid socks and Family History-Meaningful Use Start: 10/20/16 22: 15 Freq: .Once Status: Active Document 10/20/16 22:24 [id number] (Rec: 10/20/16 22:38 [id number]) Family History-Meaningful Use Mother Living Status Hx Family Neuromuscular Disorders Yes: ALS Father Living Status Still Living Hx Family Endocrine Disorder Yes: DM Glucose, blood point of care measurement Start: 10/20/16 16: 34 Freq: .ONCE Status: Complete Document 10/20/16 17:02 [facility] (Rec: 10/20/16 17:02 [id number][facility] Blood Glucose Assessment Blood Glucose* 131 Document 10/20/16 21:40 [facility] (Rec: 10/20/16 21:40 [facility] [id number]) Blood Glucose Assessment Blood Glucose* 107 IV-Invasive Line Management Start: 10/20/16 22: 15 Freq: Q8H Status: Active Document 10/20/16 22:38 [id number] (Rec: 10/20/16 22:46 [id number]) IV/Invasive Line Assessment Left Antecubital Reason for Line Insertion/Rationale for Provide Access for IV Insertion Medication(s) Gauge (gauge) 18 IV Catheter Type Peripheral IV Site Observation Patent Dressing Applied Window Dressing Dry/Intact Line Care P-Locked Labs drawn from Line* No Intake and Output, Strict Start: 10/20/16 22: 15 Freq: Status: Active Document 10/20/16 22:56 KW (Rec: 10/20/16 22:56 KW [id number]) Intake and Output Number of Voids 1 Measure weight Start: 10/20/16 22: 15 Freq: Status: Active Document 10/20/16 22:59 KW (Rec: 10/20/16 22:59 [facility] [id number]) Height and Weight Weight 103.419 kg Weight Measurement Method Built in [facility] NPO (Nursing Order) Start: 10/20/16 15: 25 Freq: NOW Status: Complete Document 10/20/16 15:54 [facility] (Rec: 10/20/16 15:54 [facility] [id number]) Observation Admission Assessment Start: 10/20/16 22: 15 Freq: .once Status: Active Document 10/20/16 22:24 [id number] (Rec: 10/20/16 22:38 [id number]) General Questions Date of Arrival on Unit 10/20/16 Time of Arrival on Unit 22:28 Admitted From Emergency Dept Chief Complaint head feeling funny for a wk. Onset of Chief Complaint 10/13/16 History Provided By Patient Orientation To Call Light Bed Phone TV Bathroom Smoking Policy Visiting Hours Procedures ID Bracelet On Emergency Contact Name Radha Trimble Relationship to Patient sister Emergency Contact Bands applied ID band Patient Health Portal Patient was provided information on Yes accessing patient portal Patient Requests Portal Enrollment No Reason No Portal Enrollment Patient Already Enrolled Advance Directives Advance Directives No Advance Directives Information Provided Yes Patient Rights Copy of Rights Given and Verbalizes Yes Understanding Tobacco Free [place]: Copy of AHS Yes Statement Given and Patient Verbalizes Understanding Communication Ability Primary Language Pakistani Preferred Language Pakistani Can Line Examiner Required No Ability to Follow Directions Excellent Able to Read Yes Able to Write Yes Communication Tools None Caregiver Communication Skills No Impairment Impairment Learning Preferences One-on-One Instruction Hearing Ability Normal Visual Assistive Devices Glasses Pain Assessment Do You Have Any Ongoing (Chronic) Pain No Problems Educated on Pain Scale Yes Past Medical History Medical history diabetes hyperlipidemia hypertension other Male Surgical History non-contributory herniorrhaphy other Psychiatric history anxiety Smoking Status Never smoker Smokeless Tobacco Status No Alcohol use none Drug use none Occupational status employed Current living situation Home With Family Activity level Independent ambulation Recent Out of Country Travel Within the No Last 8 Weeks Exposure or Possible Exposure to Illness No During Travel Functional Assessment 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 Eating (Feeding) Ability Independent Bathing Ability Independent Upper Body Dressing Ability Independent Lower Body Dressing Ability Independent Ambulation Ability Independent Toileting Ability Independent Bladder Continent Bowel Continent Normal Bowel Pattern Daily Date of Last Known Bowel Movement 10/20/16 Psychosocial Over Age 75 and Lives Alone or Over Age No 80 Potential Need for Follow-up Care (ECF, No Home Health, ECT) Developmentally Disabled or History of No 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 Need or No Terminal Implications Responsible for Care of Others No Financial Concerns No Suspected Abuse or Neglect No Suicidal or Homicidal Ideation No Social Service Consult Needed No Obtain Old EKG Start: 10/20/16 15: 25 Freq: Status: Complete Document 10/20/16 16:40 [facility] (Rec: 10/20/16 16:40 [id number][facility] Orthostatic Vital Signs Start: 10/20/16 16: 34 Freq: .ONCE Status: Complete Document 10/20/16 17:11 [facility] (Rec: 10/20/16 17:11 [id number]) Orthostatic Vital Signs Orthostatic Standing Right Arm Blood Pressure 130/85 Pulse Rate 114 Orthostatic Sitting Right Arm Blood Pressure 129/91 Pulse Rate 104 Orthostatic Lying Right Arm Blood Pressure 122/85 Pulse Rate 99 Oxygen administration Start: 10/20/16 22: 15 Freq: Q12H Status: Active Document 10/20/16 22:38 [id number] (Rec: 10/20/16 22:46 [id number]) Oxygen Oxygen S/U/Change No Oxygen Delivery Method Room Air Patient Belongings Start: 10/20/16 22: 15 Freq: .ONCE Status: Active Document 10/20/16 22:24 [id number] (Rec: 10/20/16 22:38 [id number]) Patient Belongings Belongings With Patient on Admission Yes At Bedside Patient Belongings Cell Phone Coat Glasses Pants Shirt Shoes Socks 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 Yes Safety Call Light Within Reach Bed Position Low Fall Precautions Phone Within Reach Bed Brake On Side Rails Up X2 Are the Floors Free From Trip Hazards? Yes Is the Room Free From Clutter? Yes Turn and Postion Bedrest No Document 10/20/16 22:55 KW (Rec: 10/20/16 22:55 KW [id number]) Hourly Rounding Hourly Rounding Checked for Patient Positioning Patient Personal Items Placed Within Reach Checked Patient Pain Level Hourly Rounding Completed Yes Patient Awake Is family present? No Safety Call Light Within Reach Bed Position Low Fall Precautions Phone Within Reach Bed Brake On Side Rails Up X2 Are the Floors Free From Trip Hazards? Yes Is the Room Free From Clutter? Yes Turn and Postion Bedrest No Turn Q 2HR No RT Continuous Pulse Oximetry Start: 10/20/16 15: 25 Freq: Status: Complete Document 10/20/16 16:04 [facility] (Rec: 10/20/16 16:04 [id number]) Saline lock insertion/management Start: 10/20/16 16: 34 Freq: .ONCE Status: Complete Document 10/20/16 17:00 [facility] (Rec: 10/20/16 17:00 [facility] [id number]) IV Insertion/Site Assessment IV Attempt 1 Successful Unsuccessful Document 10/20/16 17:51 [facility] (Rec: 10/20/16 17:51 C [id number]) IV Insertion/Site Assessment IV Attempt 1 Successful Successful Blood drawn and sent to Lab No Left Antecubital IV Established SAP TECHNICAL ARCHITECT No Date of Insertion 10/20/16 Time of Insertion 17:51 Reason for IV Insertion Replace Lost Fluids Provide Access for IV Medication(s) Provide Access for Emergency IV Catheter Type Peripheral IV Gauge (gauge) 18 Site Observation Patent Dressing Applied Window Dressing Transparent Dressing Dry/Intact Patient Tolerance Tolerated Well Sepsis Screening Start: 10/20/16 22: 15 Freq: Q8H Status: Active Document 10/20/16 22:38 [id number] (Rec: 10/20/16 22:46 [id number]) Sepsis Screening Sepsis Infection Criteria Present none Sepsis SIRS Criteria none Sepsis Screen No Definite Risk Sepsis Action Taken no action required Skin Risk Assessment Scale Start: 10/20/16 22: 15 Freq: Q12H Status: Active Document 10/20/16 22:38 [id number] (Rec: 10/20/16 22:46 [id number]) Skin Risk Assessment Scale Moisture Risk Rarely Moist Sensory Perception No Impairment Activity Risk Walks Occasionally Mobility Risk Slightly Limited Nutrition Risk Adequate Friction & Shear Risk No Apparent Problem Skin Risk Total Score (points) 20 Supplemental oxygen titration Start: 10/20/16 15: 25 Freq: Status: Complete Document 10/20/16 16:04 [facility] (Rec: 10/20/16 16:04 [facility] [id number]) Oxygen Adminstration Oxygen Saturation 96 Oxygen Delivery Method Room Air System Review Start: 10/20/16 22: 15 Freq: Q8H Status: Active Document 10/20/16 22:38 [id number] (Rec: 10/20/16 22:46 [id number]) Pain Assessment Pain Present Reports No Pain Neurological Assessment Eye Opening Spontaneous Motor Obeys Commands Verbal Oriented Coma Scale Total 15 Neurologic Status Alert Patient Orientation Person Place Time Arousable To Name Speech Pattern Normal rate Normal rhythm Normal tone Appropriate Clear Patient Behavior Appropriate Cooperative Mood Description Calm Bilateral Pupil Reaction Reactive Flag Signaler Strength Equal Push/Pull Equal Numbness/Tingling No Facial Symmetry Symmetrical Cardiovascular Assessment Signs and Symptoms None Heart Sounds S1 & S2 Pulse Rhythm Regular Jugular Vein Distention None Capillary Refill < 3 Seconds Right Radial 2+ Left Radial 2+ Right Dorsalis Pedis 2+ Left Dorsalis Pedis 2+ Mechanical Prophylaxis No Pacemaker Assessment Cardiac Comment: No order for tele at this time . Respiratory Assessment Respiratory Symptoms None Effort Normal for Patient Spontaneous Non-Labored Depth Normal Respiratory Pattern Regular Chest Shape Normal Expansion Symmetrical All Lung Brandt Clear Oxygen Delivery Method Room Air Cough Description None Gastrointestinal Assessment Abdomen Description Soft Non-Tender Large 3 or more loose stools, in less than 24 No hours Nausea/Vomiting Presence None All Four Quadrants Active Flatus Presence Present Genitourinary Assessment Genitourinary Symptoms None Bladder Pattern Normal Voiding Method Toilet Urinal Bladder Distention None Comment: No urine observed by RN at this time. Integumentary Assessment Nail Bed Appearance [place] Temperature Warm Moisture Dry Turgor Normal Color Normal All Pressure Points Assessed Yes Evidence of Incision/Wounds/Breakdown No: scrape on left knee Mucous membranes moist, pink and intact Yes Oral Cavity Normal Musculoskeletal Assessment Musculoskeletal Symptoms None Teaching Record Start: 10/20/16 22: 15 Freq: Q12H Status: Active Document 10/20/16 22:38 [id number] (Rec: 10/20/16 22:46 [id number]) Teaching Record: General Education Topics Medications Hospital Environment Response Return demonstration Methods Discussion Recipient Patient Education Provided: Details Pt educated to use call light for all patient needs. Triage Start: 10/20/16 15: 25 Freq: Status: Complete Document 10/20/16 15:26 AMP (Rec: 10/20/16 15:33 [facility] [id number]) Triage Chief Complaint triage ED Neuro Symptoms/Deficit Patient Stated Complaint head pressure IRENE 3 Onset (ago) week(s) Description of Symptoms Patient's sister reports she had the patient at 's office this morning because he has been complaining of head pressure and his head feeling weird for 1 week. Patient was sent to the ED with the recommendation of a head CT by . Patient's sister reports the patient has been really clammy today. He was very clammy and sweaty after a bowel movement so she done orhos on him and see saw positive changes. General Appearance alert in no apparent distress Work Related Injury? No Mode of arrival ambulatory Source patient Limitations no limitations Ebola Risk: Travel/Contact With Anyone No From Affected Area/s Has Patient Experienced Ebola Symptoms No Temperature (97.6 F-99.6 F) 97.7 F Temperature Source Oral Pulse Rate 116 Respiratory Rate 16 Blood Pressure 125/81 O2 Sat by Pulse Oximetry 96 Oxygen Delivery Room Air Height 1.7 m Weight 99.79 kg Weight Measurement Method Stated by Patient Pain Scale 5 Pain Scale Used Standard (1-10) Medical history diabetes hyperlipidemia hypertension other Male surgical history other Additional surgical history PMH Hernia Repair Psychiatric history anxiety Smoking Status Never smoker Smokeless Tobacco Status No Alcohol Use none Drug Use none Patient resides with/at Parent/s Safety Concerns Feels Safe At This Time Do you currently feel hopless, have No thoughts of self harm, or thoughts of harming others History of fall in last 14 days? No Influenza vaccine up to date Yes Pneumonia vaccine up to date No Tetanus UTD unsure Coma Scale Eye Opening Spontaneous Coma Scale Motor Response Obeys Commands Coma Scale Verbal Response Oriented Coma Scale Total 15 Vital Signs Assessment Start: 10/20/16 15: 25 Freq: Status: Active Document 10/20/16 16:04 [facility] (Rec: 10/20/16 16:04 [facility] [id number]) ED Vital Signs Pain Reported No Pain Reported Blood Pressure 125/79 Blood Pressure Location Left Arm Source Automatic Cuff Pulse Rate 112 Respiratory Rate 18 Depth Normal Effort Normal for Patient Spontaneous Non-Labored Pulse Oximetry 96 Oxygen Delivery Room Air Vital Signs Assessment Start: 10/20/16 16: 34 Freq: PROTOCOL Status: Active Document 10/20/16 17:01 [facility] (Rec: 10/20/16 17:02 [facility] [id number]) ED Vital Signs Pain Reported No Pain Reported Blood Pressure Location Right Arm Source Automatic Cuff Pulse Rate 106 Respiratory Rate 16 Depth Normal Effort Normal for Patient Spontaneous Non-Labored Pulse Oximetry 95 Oxygen Delivery Room Air Document 10/20/16 17:12 [facility] (Rec: 10/20/16 17:12 [facility] [id number]) ED Vital Signs Pain Reported No Pain Reported Blood Pressure 130/85 Blood Pressure Location Right Arm Source Automatic Cuff Pulse Rate 114 Respiratory Rate 16 Depth Normal Effort Normal for Patient Spontaneous Non-Labored Pattern Regular Pulse Oximetry 95 Oxygen Delivery Room Air Document 10/20/16 18:16 [facility] (Rec: 10/20/16 18:17 [facility] [id number]) ED Vital Signs Pain Reported No Pain Reported Blood Pressure 120/80 Blood Pressure Location Right Arm Source Automatic Cuff Pulse Rate 99 Respiratory Rate 16 Depth Normal Effort Normal for Patient Spontaneous Non-Labored Pulse Oximetry 94 Oxygen Delivery Room Air Document 10/20/16 21:40 [facility] (Rec: 10/20/16 21:40 [id number] ED Vital Signs Pain Reported No Pain Reported Blood Pressure 141/94 Blood Pressure Location Right Arm Source Automatic Cuff Pulse Rate 113 Respiratory Rate 16 Depth Normal Effort Normal for Patient Spontaneous Non-Labored Pulse Oximetry 95 Oxygen Delivery Room Air Vital Signs Assessment Start: 10/20/16 22: 15 Freq: Q4H Status: Active Document 10/20/16 22:58 KW (Rec: 10/20/16 22:59 KW [id number]) Vital Signs (Critical Care) Temperature (97.6 F-99.6 F) 97.7 F Temperature Source Oral Right Radial 2+ Left Radial 2+ Right Dorsalis Pedis 2+ Left Dorsalis Pedis 2+ Respiratory Rate 16 Pulse Oximetry 95 Oxygen Delivery Method Room Air Blood Pressure 133/99 Neuro Status *Recalled from last Alert documented assessment Vital Signs with MEWS Temperature (97.6 F-99.6 F) 98.1 F Temperature Source Oral Pulse Rate 102 Respiratory Rate 16 Pulse Oximetry 95 Oxygen Delivery Room Air Blood Pressure 106/71 Blood Pressure Location Right Arm Source Automatic Cuff Position Supine Neuro Status *recalled from last Alert documentation MEWS Score 2 Wound Assessment Start: 10/20/16 22: 15 Freq: Q8H Status: Active Document 10/20/16 22:38 [id number] (Rec: 10/20/16 22:46 [id number]) Drains Tube/Drain Discontinued No Discharge Information ED Provider: Gary Rosas Status: Departed Time Seen by Provider: 10/20/16 15:47 Condition: Fair Triaged At: 10/20/16 15:26 Emergency Discharge Date/Time: 10/20/16 22:13 Emergency Discharge Disposition: Admitted As Inpatient Clinical Impression Pre-syncope Tachycardia Fatigue Emergency Discharge Comment: Admit Intervention Last Done ED Discharge Assessment 10/20/16 22:12 Query Result ED Discharge Disposition Admitted ED Condition on Discharge Fair Med Rec/Patient Phamracy completed? Yes ED Admit to 3B Bed assigned 3B54 Transported by range technician Transported with IV continuing medication Report given to Nurse Care transferred to RONALD Strong Information relayed patient's care treatments medications given condition recent/anticipated change Clinical Documentation Summary Provided Yes Severity scale (1-10) 0 Pain Scale Used Standard (1-10) Blood Pressure 133/99 Heart rate 92 Respiratory Rate 16 Oxygen Delivery Room Air Pulse Oximetry Reading 96 Critical Care Minutes 0 Dysphagia Screen Nursing Observation Discharge Date/Time: Observation Discharge Disposition: Observation Discharge Comment: Instructions: Stand-Alone Forms: Prescriptions: Visit Report - Forms: - Referrals: Radiology Results Chest X-Ray 10/20/16 16:35 IMPRESSION: No acute process. D/ / Alejandro Chao MD / Alejandro Chao MD Interpreting Provider: Alejandro Chao MD Head CT 10/20/16 17:34 IMPRESSION: No acute intracranial abnormality. D/ / Elton Doran MD / Elton Doran MD Interpreting Provider: Elton Doran MD Chest CTA 10/20/16 19:51
[2016-10-21] MEDS ORDERED: *HR* Morphine 2 MG/ML SYRINGE IVP PRN (00:34)
[2016-10-21] MEDS ORDERED: Acetaminophen 325 MG TABLET PO PRN (00:34)
[2016-10-21] MEDS ORDERED: D5% in Water 1,000 ML IVC PRN (00:34)
[2016-10-21] MEDS ORDERED: *HR* Promethazine 25 MG/ML VIAL IVP PRN (00:34)
[2016-10-21] MEDS ORDERED: Dextrose Gel 15 GM PO PRN ×2 (00:34)
[2016-10-21] MEDS ORDERED: *HR* OxyCODONE Immed Rel 5 MG TABLET PO PRN (00:34)
[2016-10-21] MEDS ORDERED: *HR* Dextrose 50 % in Water (Syg) 50 ML SYRINGE IVP PRN (00:34)
[2016-10-21] MEDS ORDERED: Naloxone 0.4 MG/ML INJ IVP PRN (00:34)
[2016-10-21] MEDS ORDERED: 0.9 % Sodium Chloride 1,000 ML IVC SCH (00:45)
[2016-10-21 01:08] LABS: Bilirubin,Urine Negative (Negative); Blood,Urine Negative (Negative); Clarity,Urine Clear (Clear); Color,Urine Yellow (Yellow); Glucose,Urine (UA) Normal (Normal); Ketones,Urine Negative (Negative); Leukocyte Esterase,Urine Negative (Negative); Nitrite,Urine Negative (Negative); Protein,Urine Negative (Neg-Trace); Specific Gravity,Urine 1.018 (1.010-1.025); Urobilinogen,Urine Normal (Normal)
[2016-10-21 01:51] LABS: INR 1.2; Prothrombin Time 12.8 Seconds (9.4-12.1)
[2016-10-21 01:54] LABS: Activated Partial Thrombo Time 47.1 Seconds (26.0-36.0)
[2016-10-21 02:05] LABS: BUN/Creatinine Ratio 16 (6-26); Blood Urea Nitrogen 21 mg/dL (8-26); Carbon Dioxide 20 mEq/L (19-29); Chloride 104 mEq/L (98-109); Potassium 4.3 mEq/L (3.5-4.5); Sodium 136 mEq/L (136-145); eGFR For African Americans > 60 (> 60); eGFR For Non-African Americans > 60 (> 60)
[2016-10-21 02:06] LABS: Alanine Aminotransferase 31 Units/L (0-55); Albumin 3.8 g/dL (3.5-5.0); Albumin/Globulin Ratio 1.2 (1.1-2.2); Alkaline Phosphatase 62 Units/L (38-126); Aspartate Amino Transferase 30 Units/L (5-34); Bilirubin,Total 0.5 mg/dL (0.2-1.2); Calcium 9.6 mg/dL (8.6-10.8); Chol/HDL Ratio 5.4 (0-4.9); Cholesterol 163 mg/dL (< 200); Globulin 3.1 g/dL (2.4-3.5); Glucose 152 mg/dL (70-99); HDL Cholesterol 30 mg/dL (40-59); LDL Cholesterol,Calculated 110 mg/dL (0-99); Magnesium 2.2 mg/dL (1.6-2.6); Osmolality,Calculated 288 (280-300); Phosphorous 3.8 mg/dL (2.3-4.7); Total Protein 6.9 g/dL (6.0-8.3); Triglycerides 117 mg/dL (< 150)
[2016-10-21 02:27] LABS: Thyroid Stimulating Hormone 3.362 mcIU/mL (0.350-4.840); Triiodothyronine (T3) Free 2.45 pg/mL (1.71-3.71)
[2016-10-21 04:00] LABS: Folate 16.7 ng/mL (7.0-31.4)
[2016-10-21] MEDS: Insulin LISPRO 300 UNITS/3 ML VIAL SQ SCH ×2 (08:49→12:29)
--- NOTE | 2016-10-21 10:27 | ECHO - Doppler Report ---
Echocardiogram Name: Joel Mayorga Date of Study: 10/21/2016 Date: 1970 Ht: 67.0 in Medical Record#: [id number] Age: 46 Wt: 228.0 lb Gender: Male BSA: 2.14 Order #: [id number] Location: [facility] Room #: 3B54 Reading Physician: Jason Calvillo MD, [facility] Mica Builder: Warren Ingram RDCS Ordering Physician: Rashel Spencer MD Primary Physician: David Lentz MD Indications: Syncope Impressions: Normal LV systolic function, LVEF 60-65%. Mild left ventricular diastolic dysfunction. Normal right ventricular size and function. No significant valvular dysfunction. Unable to estimate RVSP due to lack of TR jet. Left Ventricular Wall Motion: Rest Echo Findings All wall segments showed normal motion. Findings: Study Quality * Suboptimal echo windows. ECG Findings * Normal sinus rhythm. Left Ventricle * Normal LV systolic function, LVEF 60-65%. * Normal LV chamber size and wall thickness. * Mild left ventricular diastolic dysfunction. Right Ventricle * Normal right ventricular size and function. Left Atrium * Normal left atrial size. Right Atrium * Normal right atrial size. Aorta * Normally sized aortic root. Pericardium * There is no pericardial effusion present. IVC * The IVC is not dilated. Aortic Valve * Aortic valve not well visualized. Appears trileaflet. * No aortic stenosis. * No aortic regurgitation. Mitral Valve * Normal mitral valve structure. * No mitral stenosis. * No mitral regurgitation. Tricuspid Valve * Normal tricuspid valve structure. * No tricuspid stenosis. * Trace tricuspid regurgitation. * Unable to estimate RVSP due to lack of TR jet. Pulmonic Valve * Pulmonic valve not well visualized. * No pulmonic stenosis. * No pulmonic regurgitation. History Hypertension Diabetes Hypercholesteremia Measurements: BP: 123/ 87 2D Normal Values RVIDd: 3.20 cm IVSd: .92 cm 0.6 - 1.0 cm LVIDd: 5.08 cm 3.7 - 5.6 cm LVPWd: .93 cm 0.6 - 1.1 cm LVIDs: 3.20 cm 1.5 - 3.6 cm AO: 3.10 cm < 4.0 cm %FS: 37.00 cm >25 % LA volume: 29 Mitral Valve Peak E:.57 m/sec Peak A:.85 m/sec E/A Ratio:0.7 Updated by Jason Calvillo MD, [facility] on 10/21/2016 10:20:58 AM electronically signed on 10/21/2016 10:21:22 AM with status of Final Wall Motion [place]: 1=Normal, 2=Hypokinesis, 3=Akinesis, 4=Dyskinesis, 5=Aneurysmal, 6=Hyperkinetic, X=Not Visualized (Blank)=Missing
[2016-10-21 15:50] VITALS: BP 147/94
--- NOTE | 2016-10-21 16:18 | Discharge Summary ---
Date of Encounter: 10/21/16 Time of Encounter: 14:00 - Discharge Diagnosis (1) Postural dizziness with presyncope Priority: Primary Status: Resolved Comments: Likely secondary to dehydration. Patient stating that started last week, he started to have decreased by mouth intake with elevated glucose readings. He was able to tolerate a regular diet and did not have any postural dizziness on day of discharge. (2) Diabetes mellitus Priority: Secondary Status: Chronic Comments: Moderately controlled with a recent A1c of 8.2%, recommend continued follow-up outpatient (3) Nausea and vomiting Priority: Primary Status: Resolved Comments: Patient was able to tolerate a regular diet while admitted. (4) Anxiety Priority: Secondary Status: Chronic (5) Tachycardia Priority: Primary Status: Acute Comments: Improved with hydration, follow-up outpatient (6) Fatigue Priority: Primary Status: Resolved Qualifiers: Fatigue type: other Qualified Code(s): R53.83 - Other fatigue (7) Obesity (BMI 30-39.9) Priority: Secondary Status: Chronic (8) Situational anxiety Priority: Primary Status: Resolved - Discharge Medications Home Medications: Buspirone [Buspar] 15 mg PO BID 06/19/15 [History] Gemfibrozil [Lopid] 600 mg PO BIDWM 06/19/15 [History] Lisinopril [Zestril] 10 mg PO DAILY 06/19/15 [History] Sertraline [Zoloft] 50 mg PO QPM 06/19/15 [History] Glimepiride [Amaryl] 4 mg PO QAM 10/20/16 [History] Hydroxyzine HCl 25 mg PO DAILY PRN 10/20/16 [History] Metformin HCl [Glucophage Xr] 750 mg PO BID 10/20/16 [History] Pioglitazone HCl [Actos] 30 mg PO DAILY 10/20/16 [History] Sertraline [Zoloft] 100 mg PO QAM 10/20/16 [History] Allergies/Adverse Reactions: Allergies No Known Allergies Allergy (Verified 10/20/16 15:33) Procedures/tests Complete & Pending: Procedures Performed prior 72 hours Category Date Time Status MR head/brain wo con [MR] Routine MRI 10/21/16 00:41 Completed EV carotid duplex imaging BI Routine Y 10/21/16 00:41 Completed EV echocardiogram Routine Y 10/21/16 00:41 Completed Date of admission: 10/20/16 21:38 Primary care physician: David Lentz MD Consults: 10/21/16 00:34 Consult to Run Boat Operator [CONS] Routine Comment: Discharging clinician: Angeline Sunshine Anticipated date of discharge: 10/21/16 - Patient Status Disposition: Home, Self-Care Condition: Fair Functional capacity at discharge: independent ambulation Overall status at discharge: patient is progressing back to baseline - Discharge Instructions Follow Up With: David Lentz MD [Primary Care Provider] - 10/30/16 1:00 pm Additional Instructions: Follow-up with primary care provider as scheduled - Diet and Activity Activity: increase activity as tolerated Diet: diabetic diet, low fat, low cholesterol, low salt diet Hospital course: Mr. Mayorga is a 46 year old male past medical history of diabetes, hyperlipidemia, hypertension, anxiety, never smoker. Patient presented to the emergency department after presyncopal episode. Patient's sister accompanied him to the emergency room and she stated that the patient had a bowel movement and then a presyncopal episode afterwards in which she was pale, diaphoretic for approximately 15 minutes prompting her to bring him to the emergency department. Patient denied loss of consciousness but did endorse feeling lightheaded. His sister also states that he has had persistent tachycardia for the past week. Patient was seen in the emergency department last week for hyperglycemia that was treated with IV therapy and he was discharged. Patient also endorsing nausea and vomiting prior to presentation. Workup in the emergency department unremarkable. Chest x-ray negative. Head CT negative. Elevated D dimer was noted and chest CTA was negative for PE. He was admitted to the hospitalist service for further evaluation and management. Brain MRI negative for acute processes. Echocardiogram unremarkable with ejection fraction of 60-65%. Carotid duplex unremarkable. Patient's by mouth intake improved during this admission and he was no longer hydrated. His symptoms of lightheadedness and dizziness had resolved prior to discharge. Urinalysis negative. Likely cause of presyncopal episode dehydration and likely vasovagal. He was discharged home in stable condition with close outpatient follow-up recommended. ITS Impressions Chest X-Ray 10/20/16 16:35 IMPRESSION: No acute process. D/ / Alejandro Chao MD / Alejandro Chao MD Interpreting Provider: Alejandro Chao MD Head CT 10/20/16 17:34 IMPRESSION: No acute intracranial abnormality. D/ / Elton Doran MD / Elton Doran MD Interpreting Provider: Elton Doran MD Chest CTA 10/20/16 19:51 IMPRESSION: No evidence of a pulmonary embolus. Clear lungs. Mediastinal lipomatosis. D/ / Alf Lign MD / Alf Ling MD Interpreting Provider: Alf Ling MD Brain MRI 10/21/16 00:41 IMPRESSION: Unremarkable noncontrast MRI of the brain. D/ / Siddhartha Rae MD / Siddhartha Rae MD Interpreting Provider: Siddhartha Rae MD Echocardiogram impressions: Normal LV systolic function, LVEF 60-65%. Mild left ventricular diastolic dysfunction. Normal left ventricular size and function. No significant valvular dysfunction. Unable to estimate RVSP due to lack of TR jet. 10/21/16 09:56 - Vascular Preliminary by Malcolm Ingram Acct Num: [id number] : 1970 Patient Age: 46 Bilateral carotid ultrasound appears to be within normal limits. No plaque noted. - Time Spent with Patient Total time spent providing and/or coordinating discharge services: - Constitutional Vitals: Temp Pulse Resp BP Pulse Ox 98.1 F 100 14 147/94 95 10/21/16 15:49 10/21/16 15:49 10/21/16 15:49 10/21/16 15:49 10/21/16 15:49 General appearance: Present: A&O X 3, pleasant, no acute distress, answers questions appropriately - Head Head exam: Present: atraumatic, normocephalic - Eye Eye exam: Present: PERRL, conjuntiva pink, sclera anicteric Pupils: Present: PERRL - Neck Neck exam general surgery: Present: supple, trachea midline. Absent: lymphadenopathy - Respiratory Respiratory exam: Present: CTAB. Absent: accessory muscle use, rales, respiratory distress, rhonchi, wheezes - Cardiovascular Cardiovascular exam: Present: RRR, +S1, +S2, tachycardia (mild; improved). Absent: diastolic murmur, gallop, rubs, systolic murmur - GI/Abdominal GI/Abdominal exam: Present: normal bowel sounds, soft, no peritoneal signs. Absent: distended, tenderness - Extremities Exam Extremities exam: Present: warm, radial pulses palpable and symetrical. Absent : calf tenderness, cyanotic, pedal edema - Neurological Exam Neurological exam: Present: alert, CN II-XII intact, normal gait, oriented X3, no focal deficits, strengths equal and symetr throughout. Absent: pronater drift, facial droop, speech deficit - Skin Skin exam: Present: dry, intact, normal color, warm
--- NOTE | 2016-10-21 17:34 | Electrocardiograph Report ---
[address] [address] Test Date: 2016-10-20 Pat Name: Joel Mayorga Department: 104 Room: 3B Gender: M Mails Supervisor: : 1970 Requested By: Torsten Asencio Order Number: [id number] Reading MD: Bridgette Warren Measurements Intervals [place] Rate: 102 P: 31 VA: 147 QRS: 16 QRSD: 93 T: 6 QT: 328 QTc: 387 Interpretive Statements SINUS TACHYCARDIA ABNORMAL RHYTHM ECG Electronically Signed On 10-21-2016 17:33:17 EDT by Bridgette Warren
[2016-10-21] MEDS ORDERED: Insulin LISPRO 300 UNITS/3 ML VIAL SQ SCH (21:00)
--- NOTE | 2016-10-21 22:14 | Carotid Imaging Report ---
Carotid Duplex Patient Name:Joel Mayorga Order Number:[id number] Procedure Date:10/21/2016 Date:1970Age:46 yrs Gender:Male Location:[facility] OP Room #: Home Staging Specialist:Warren Ingram, [facility] Referring MD:Rashel Spencer MD antique furniture reproducer:David Lentz MD Reading MD:Freddie Davalos MD , [facility] Primary Indications:Syncope Risk Factors Yes/No Hypertension Yes Diabetes Yes Hypercholesterolemia Yes Impressions: Findings: Bilateral carotid systems are essentially normal. Recommendations: After imaging the patient returned to their room. Findings Carotid Duplex: Degroot scale imaging combined with Doppler flow analysis suggests normal findings bilaterally. Right: The right proximal common carotid artery has a PSV of 120 cm/s and a EDV of 21 cm/s. The right mid common carotid artery has a PSV of 92 cm/s and a EDV of 21 cm/s. The right distal common carotid artery has a PSV of 69 cm/s and a EDV of 17 cm/s. The right bifurcation has a PSV of 58 cm/s and a EDV of 20 cm/s. The right proximal internal carotid artery has a PSV of 51 cm/s and a EDV of 24 cm/s. The right mid internal carotid artery has a PSV of 83 cm/s and a EDV of 40 cm/s. The right distal internal carotid artery has a PSV of 191 cm/s and a EDV of 66 cm/s. The right eca has a PSV of 89 cm/s and a EDV of 14 cm/s. The right vertebral artery has a PSV of 49 cm/s and a EDV of 20 cm/s. High velocities d/t tortuous distal ICA. Left: The left proximal common carotid artery has a PSV of 93 cm/s and a EDV of 22 cm/s. The left mid common carotid artery has a PSV of 98 cm/s and a EDV of 23 cm/s. The left distal common carotid artery has a PSV of 82 cm/s and a EDV of 24 cm/s. The left bifurcation has a PSV of 73 cm/s and a EDV of 18 cm/s. The left proximal internal carotid artery has a PSV of 69 cm/s and a EDV of 27 cm/s. The left mid internal carotid artery has a PSV of 108 cm/s and a EDV of 46 cm/s. The left distal internal carotid artery has a PSV of 121 cm/s and a EDV of 49 cm/s. The left eca has a PSV of 127 cm/s and a EDV of 20 cm/s. The left vertebral artery has a PSV of 57 cm/s and a EDV of 21 cm/s. Prior Study: No prior study available for comparison. Carotid Results Right PSV EDV Assessment Proximal CCA 120 21 Normal Mid CCA 92 21 Normal Distal CCA 69 17 Normal Bifurcation 58 20 Normal Proximal ICA 51 24 Normal Mid ICA 83 40 Normal Distal ICA 191 66 Normal ECA 89 14 Normal Vertebral Artery 49 20 Normal Left PSV EDV Assessment Proximal CCA 93 22 Normal Mid CCA 98 23 Normal Distal CCA 82 24 Normal Bifurcation 73 18 Normal Proximal ICA 69 27 Normal Mid ICA 108 46 Normal Distal ICA 121 49 Normal ECA 127 20 Normal Vertebral Artery 57 21 Normal Ratio's Right ICA/CCA Ratio: 2.08 ICA/CCA Values: 191/92 Left ICA/CCA Ratio: 1.23 ICA/CCA Values: 121/98 Updated by Freddie Davalos MD, FACS on 10/21/2016 10:08:55 PM Freddie Davalos MD electronically signed on 10/21/2016 10:09:25 PM with status of Final
== END 2016-10-21 18:15 | disposition home or self-care (01) ==
LOC: EMEROO 14:48 → 3BNU 14:48
PROVIDERS: ADMIT Internal Medicine; ATTEND Nurse Practitioner Family